=== PATIENT | male | born 1940 | race Two or more races ===

== ENCOUNTER 2017-09-01 08:30 | Emergency (ER) | payer OTHER ==
[~2017-09-01] VITALS: Ht 170.2 cm; Wt 93.9 kg
[2017-09-01] MEDS ORDERED: ASPIR 8181 MG (08:45)
[2017-09-01] MEDS ORDERED: TAMS0.4C (08:46)
[2017-09-01] MEDS ORDERED: ALTACE10 MG (08:46)
[2017-09-01] MEDS ORDERED: HYDROCHLOROTHIA25 MG (08:46)
[2017-09-01] MEDS ORDERED: SIMVASTATIN40 MG (08:46)
== END 2017-09-01 13:10 | disposition home or self-care (01) ==
LOC: ER 08:30
DX: J45.901 Unspecified asthma with (acute) exacerbation (principal); J11.1 Influenza due to unidentified influenza virus with other respiratory manifestations

== ENCOUNTER 2018-09-16 08:20 | Outpatient (CLI) | payer OTHER ==
[~2018-09-16 08:20] MED LIST: ALTACE10 MG; ASPIR 8181 MG; HYDROCHLOROTHIA25 MG; SIMVASTATIN40 MG; TAMS0.4C
== END 2018-09-16 15:00 | disposition home or self-care (01) ==
LOC: LAB 08:20
DX: J20.0 Acute bronchitis due to Mycoplasma pneumoniae (principal); J11.1 Influenza due to unidentified influenza virus with other respiratory manifestations